=== PATIENT | female | born 1960 | race Caucasian/White ===

== ENCOUNTER → 2017-08-12 | Outpatient (CLI) | payer MEDICARE ==
[~2017-08-12] MED LIST: AMOXICILLIN500 MG PO; ATARAX,VISTARIL10 MG PO; COMBIVENT RESPIM4 GM INH; CYMBALTA60 M1 PO; CYMBALTA60 MG; CYMBALTA60 MG PO; DAYPRO600 M1 PO; IBU-8800 MG PO; LATU60TA PO; LATUDA; LISINOPRIL10 M1 PO; LITHIUM CARBON450 MG; LITHIUM CARBON450 MG PO; LOTRIMIN 1%15 GM PO; MEDROL DOSEPAK4 MG PO; NIFEDIPINE90 MG PO; NORVASC10 MG PO; PROZAC40 MG; PROZAC40 MG PO; ROBAXIN750 MG PO; VICODIN 500 MG-1 TAB PO; XANAX1 MG; XANAX1 MG PO; ZOCOR40 MG PO
[2017-08-12 09:37] LABS: ALBUMIN 3.6 gm/dl (3.1-4.5); ALKALINE PHOSPHATASE 77 U/L (45-117); BUN 14 mg/dl (7-24); CHLORIDE 104 mmol/L (98-107); CHOLESTEROL 189 mg/dL (<200); HDL CHOLESTEROL 76 mg/dl (40-60); POTASSIUM 4.6 mmol/L (3.5-5.1); SGOT/AST 17 IU/L (3-35); SGPT/ALT 22 U/L (12-78); SODIUM 137 mmol/L (136-145); TOTAL PROTEIN 7.5 gm/dL (6.4-8.2)
[2017-08-12 09:41] LABS: CREATININE 0.85 mg/dL (0.55-1.02); LDL CHOLESTEROL 92 mg/dL (9-159); TRIGLYCERIDES 103 mg/dl (<150); VLDL CHOLESTEROL 21 mg/dL (6-40)
[2017-08-12 09:54] LABS: BASO # 0.1 10*3/uL (0.0-0.1); EOS # 0.2 10*3/uL (0.0-0.4); EOS % 2.7 % (1.0-4.0); HEMATOCRIT 43.5 % (37.0-47.0); HEMOGLOBIN 14.7 g/dl (12.0-16.0); LYMPH # 2.3 10*3/uL (1.3-4.4); LYMPH % 33.7 % (27.0-41.0); MEAN CELL VOLUME 86.7 fl (81.0-99.0); MEAN CORPUSCULAR HGB 29.3 pg (27.0-31.0); MEAN CORPUSCULAR HGB CONC 33.8 g/dl (33.0-37.0); MEAN PLATELET VOLUME 10.9 fl (9.6-12.3); MONO # 0.6 10*3/uL (0.1-1.0); MONO % 8.9 % (3.0-9.0); NEUT # 3.7 10*3/uL (2.3-7.9); PLATELET COUNT AUTOMATED 296 10*3/uL (130-400); RED BLOOD COUNT 5.02 10*6/uL (4.10-5.10); RED CELL DISTRI WIDTH 12.5 % (0-14.5); WHITE BLOOD COUNT 6.9 10*3/uL (4.8-10.8)
== END | disposition home or self-care (01) ==
LOC: LAB 08:48
PROVIDERS: Nurse Practitioner Family
DX: E78.5 Hyperlipidemia, unspecified (principal); I10 Essential (primary) hypertension

== ENCOUNTER → 2017-10-12 | Outpatient (CLI) | payer MEDICARE ==
[~2017-10-12] MED LIST changes: +CHLORZOXAZONE500 M2 PO; +NAPROSYN500 MG PO
== END | disposition home or self-care (01) ==
LOC: CARD 10:20
DX: J44.9 Chronic obstructive pulmonary disease, unspecified (principal); I10 Essential (primary) hypertension; E66.9 Obesity, unspecified; Z87.891 Personal history of nicotine dependence

== ENCOUNTER 2017-11-15 11:47 | Emergency (ER) | payer MEDICARE ==
[~2017-11-15] VITALS: Ht 162.5 cm; Wt 103.0 kg
[~2017-11-15 11:47] MED LIST changes: -CHLORZOXAZONE500 M2 PO; -NAPROSYN500 MG PO
[2017-11-15] MEDS ORDERED: NAPROSYN500 MG PO (12:00)
[2017-11-15] MEDS ORDERED: CHLORZOXAZONE500 M2 PO (12:00)
== END 2017-11-15 13:04 | disposition home or self-care (01) ==
LOC: ED 11:47
DX: M54.42 Lumbago with sciatica, left side (principal); R03.0 Elevated blood-pressure reading, without diagnosis of hypertension; E78.5 Hyperlipidemia, unspecified; Z79.899 Other long term (current) drug therapy

== ENCOUNTER → 2017-11-17 | Outpatient (CLI) | payer MEDICARE ==
[~2017-11-17] MED LIST changes: +CHLORZOXAZONE500 M2 PO; +NAPROSYN500 MG PO
== END | disposition home or self-care (01) ==
LOC: CP 15:50
DX: R05 Cough (principal); R06.2 Wheezing; B37.9 Candidiasis, unspecified

== ENCOUNTER → 2018-07-11 | Outpatient (CLI) | payer MEDICARE ==
[~2018-07-11] MED LIST changes: +CRESTOR40 M1 PO; +HYDRALAZINE HYD50 MG PO; +MOBIC15 MG PO; +OXYBUTYNIN5 MG PO; +SINGULAIR10 M1 PO; +SYMB160 INH; +TRAMADOL HCL50 MG PO; +ZETIA10 MG PO; +ZYRTEC10 MG PO
[2018-07-11 12:40] LABS: BUN 13 mg/dl (7-24); CHLORIDE 104 mmol/L (98-107); CREATININE 0.84 mg/dL (0.55-1.02); POTASSIUM 4.4 mmol/L (3.5-5.1); SODIUM 139 mmol/L (136-145)
[2018-07-11 12:45] LABS: ALBUMIN 3.5 gm/dl (3.1-4.5); SGPT/ALT 50 U/L (12-78)
[2018-07-11 12:55] LABS: ALKALINE PHOSPHATASE 85 U/L (45-117); BILIRUBIN, DIRECT < 0.1 mg/dL (0.0-0.2); CHOLESTEROL 196 mg/dL (<200); FREE T4 0.96 ng/dl (0.76-1.46); HDL CHOLESTEROL 70 mg/dl (40-60); LDL CHOLESTEROL 91 mg/dL (9-159); SGOT/AST 27 IU/L (3-35); THYROID STIM HORMONE (HS) 0.785 uIU/ml (0.358-4.75); TOTAL PROTEIN 7.7 gm/dL (6.4-8.2); TRIGLYCERIDES 176 mg/dl (<150); VLDL CHOLESTEROL 35 mg/dL (6-40)
== END | disposition home or self-care (01) ==
LOC: LAB 10:34
PROVIDERS: Internal Medicine
DX: E78.5 Hyperlipidemia, unspecified (principal); E55.9 Vitamin D deficiency, unspecified; D18.00 Hemangioma unspecified site; L98.9 Disorder of the skin and subcutaneous tissue, unspecified

== ENCOUNTER → 2018-12-23 | Outpatient (CLI) | payer MEDICARE ==
[2018-12-23 12:39] LABS: ALBUMIN 3.8 gm/dl (3.1-4.5); ALKALINE PHOSPHATASE 55 U/L (45-117); BILIRUBIN, DIRECT < 0.1 mg/dL (0.0-0.2); CHOLESTEROL 149 mg/dL (<200); HDL CHOLESTEROL 74 mg/dl (40-60); LDL CHOLESTEROL 57 mg/dL (9-159); SGOT/AST 19 IU/L (3-35); SGPT/ALT 28 U/L (12-78); TOTAL PROTEIN 7.5 gm/dL (6.4-8.2); TRIGLYCERIDES 89 mg/dl (<150); VLDL CHOLESTEROL 18 mg/dL (6-40)
[2018-12-23 12:46] LABS: FREE T4 1.09 ng/dl (0.76-1.46); THYROID STIM HORMONE (HS) 0.578 uIU/ml (0.358-4.75)
== END | disposition home or self-care (01) ==
LOC: LAB 11:15
PROVIDERS: Internal Medicine
DX: E55.9 Vitamin D deficiency, unspecified (principal); E78.5 Hyperlipidemia, unspecified

== ENCOUNTER 2019-03-29 13:30 | Inpatient (IN) | payer MEDICARE ==
[~2019-03-29] VITALS: Ht 162.5 cm; Wt 101.2 kg
[2019-03-29 13:33] VITALS: BP 107/47
[2019-03-29 13:58] VITALS: BP 122/52
[2019-03-29 13:58] LABS: BASO # 0.1 10*3/uL (0.0-0.1); BASO % 0.9 % (0.0-1.0); EOS # 0.1 10*3/uL (0.0-0.4); EOS % 1.7 % (1.0-4.0); HEMATOCRIT 36.9 % (37.0-47.0); HEMOGLOBIN 12.3 g/dl (12.0-16.0); LYMPH # 1.9 10*3/uL (1.3-4.4); LYMPH % 27.4 % (27.0-41.0); MEAN CELL VOLUME 86.4 fl (81.0-99.0); MEAN CORPUSCULAR HGB 28.8 pg (27.0-31.0); MEAN CORPUSCULAR HGB CONC 33.3 g/dl (33.0-37.0); MEAN PLATELET VOLUME 10.6 fl (9.6-12.3); MONO # 0.6 10*3/uL (0.1-1.0); MONO % 8.9 % (3.0-9.0); NEUT # 4.3 10*3/uL (2.3-7.9); NEUT % 60.7 % (47.0-73.0); PLATELET COUNT AUTOMATED 301 10*3/uL (130-400); RED BLOOD COUNT 4.27 10*6/uL (4.10-5.10); RED CELL DISTRI WIDTH 13.4 % (0-14.5)
[2019-03-29 14:01] VITALS: BP 116/57
[2019-03-29 14:10] LABS: ACT PARTIAL THROMBO TIME 23.8 SECONDS (20.0-32.1); INTERNATIONAL NORM RATIO 0.9 (2.0-3.5)
[2019-03-29 14:15] LABS: ALBUMIN 3.5 gm/dl (3.1-4.5); ALKALINE PHOSPHATASE 45 U/L (45-117); BUN 16 mg/dl (7-24); CHLORIDE 111 mmol/L (98-107); CREATININE 1.24 mg/dL (0.55-1.02); LIPASE 85 U/L (73-393); POTASSIUM 3.8 mmol/L (3.5-5.1); SGOT/AST 17 IU/L (3-35); SGPT/ALT 21 U/L (12-78); SODIUM 142 mmol/L (136-145); TOTAL PROTEIN 7.4 gm/dL (6.4-8.2)
[2019-03-29 14:16] LABS: TROPONIN I < 0.015 ng/ml (<0.045)
[2019-03-29 14:58] LABS: BILIRUBIN NEGATIVE (NEGATIVE); BLOOD NEGATIVE (NEGATIVE); CLARITY CLEAR (CLEAR); COLOR YELLOW (YELLOW); GLUCOSE NEGATIVE (NEGATIVE); KETONE NEGATIVE (NEGATIVE); LEUKO ESTERASE NEGATIVE (NEGATIVE); NITRITE NEGATIVE (NEGATIVE); SPECIFIC GRAVITY >= 1.030 (1.005-1.030); UROBILINOGEN 0.2 E.U./dl (0.2-1.0)
[2019-03-29 15:21] VITALS: BP 120/48
[2019-03-29 15:26] LABS: EPITHELIAL CELLS 0-2; MUCOUS 2+
[2019-03-29 17:27] VITALS: BP 133/65
--- NOTE | 2019-03-29 17:27 | NUR ---
A 58, admitted to , under the services of CHASE Arita DO with a diagnosis of SYMPTOMATIC BRADYCARDIA. Chief complaint is LOW BLOOD PRESSURE. Patient arrived via bed from ER. Monitor applied. Initial assessment completed. Vital signs taken and recorded. CHASE ARITA DO notified of admission to the unit. Orders received. See assessment for past medical history, medications and allergies. Patient and/or family oriented to unit. [facility]. Clothing/patient valuable form completed. RENATE JONES
[2019-03-29] MEDS ORDERED: ATARAX,VISTARIL50 MG PO (18:01)
[2019-03-29] MEDS ORDERED: VITAMIN D5000 UNIT PO (18:02)
[2019-03-29] MEDS ORDERED: ROPINIROLE HYDRO1 MG PO (18:03)
[2019-03-29] MEDS ORDERED: CO Q-10200 MG PO (18:04)
[2019-03-29] MEDS ORDERED: FENOFIBRATE54 MG PO (18:07)
[2019-03-29] MEDS ORDERED: SALINE NASAL SP88 ML NAS (18:08)
--- NOTE | 2019-03-29 18:08 | NUR ---
MED REC UPDATED BASED ON BAG OF MEDS PATIENT BROUGHT IN.
--- NOTE | 2019-03-29 18:27 | NUR ---
ANSWERING SERVICE WAS NOTIFIED OF DR. PRAKASH CONSULT. RESPONSE OF NOTIFICATION WAS OK I WILL GET THIS OUT. RENATE JONES
--- NOTE | 2019-03-29 19:20 | NUR ---
ARRIVED ON SHIFT, INTRODUCED TO PATIENT, NO NEEDS VOICED AT THIS TIME, WHITE BOARD UPDATED.
[2019-03-29 20:00] VITALS: BP 119/63
--- NOTE | 2019-03-29 20:56 | NUR ---
24 HR chart check completed.
[2019-03-30] VITALS: BP 112/60
--- NOTE | 2019-03-30 | NUR ---
CALL PLACED TO DR. RUFFIN REGARDING PATIENTS HR WAS IN THE MID TO UPPER 30'S AT TIMES, AND NOT GOING ABOVE 50. ADVISED IF IT CONTINUES AND HR STAYS IN 30'S GREATED THAN 1 MINUTE TO CALL PIGMENT GRINDER.
--- NOTE | 2019-03-30 02:38 | NUR ---
CALL PLACED TO ONCALL SERVICE FOR DR. PRAKASH, DR. PELAYO IS CURRENT PHYSICIAN TERMITE CONTROL REPRESENTATIVE, SPOKE WITH SARAI, REPORTED THAT PATIENTS HEART RATE IS DROPPING INTO THE 30'S. AWAITING CALL BACK.
--- NOTE | 2019-03-30 02:48 | NUR ---
RECEIVED CALL BACK FROM DR. PELAYO, HE ADVISED THAT PATIENT MAY BE HAVING SLEEP APNEA, AND THIS IS NORMAL, UPDATE TO DR. RUFFIN
[2019-03-30 06:45] LABS: BASO # 0.1 10*3/uL (0.0-0.1); BASO % 0.8 % (0.0-1.0); EOS # 0.2 10*3/uL (0.0-0.4); EOS % 2.4 % (1.0-4.0); HEMATOCRIT 35.6 % (37.0-47.0); HEMOGLOBIN 11.8 g/dl (12.0-16.0); LYMPH # 1.7 10*3/uL (1.3-4.4); LYMPH % 27.9 % (27.0-41.0); MEAN CELL VOLUME 86.8 fl (81.0-99.0); MEAN CORPUSCULAR HGB 28.8 pg (27.0-31.0); MEAN CORPUSCULAR HGB CONC 33.1 g/dl (33.0-37.0); MEAN PLATELET VOLUME 10.8 fl (9.6-12.3); MONO # 0.6 10*3/uL (0.1-1.0); MONO % 9.5 % (3.0-9.0); NEUT # 3.6 10*3/uL (2.3-7.9); NEUT % 59.1 % (47.0-73.0); PLATELET COUNT AUTOMATED 264 10*3/uL (130-400); RED CELL DISTRI WIDTH 13.2 % (0-14.5); WHITE BLOOD COUNT 6.1 10*3/uL (4.8-10.8)
[2019-03-30 06:56] LABS: ALBUMIN 3.3 gm/dl (3.1-4.5); ALKALINE PHOSPHATASE 45 U/L (45-117); BUN 12 mg/dl (7-24); CHLORIDE 113 mmol/L (98-107); CHOLESTEROL 147 mg/dL (<200); CREATININE 0.92 mg/dL (0.55-1.02); HDL CHOLESTEROL 66 mg/dl (40-60); LDL CHOLESTEROL 62 mg/dL (9-159); PHOSPHOROUS 3.3 mg/dL (2.5-4.9); POTASSIUM 4.2 mmol/L (3.5-5.1); SGOT/AST 15 IU/L (3-35); SGPT/ALT 21 U/L (12-78); SODIUM 143 mmol/L (136-145); TOTAL PROTEIN 6.9 gm/dL (6.4-8.2); TRIGLYCERIDES 94 mg/dl (<150); VLDL CHOLESTEROL 19 mg/dL (6-40)
[2019-03-30 07:03] LABS: INTERNATIONAL NORM RATIO 0.9 (2.0-3.5)
[2019-03-30 08:00] VITALS: BP 122/70
--- NOTE | 2019-03-30 09:00 | NUR ---
Catalyst Recovery Operator in to talk to patient. Patient states lives at HOME with boyfriend. There are few steps in the home. Physician: yisel whitt [facility] Home health services: none Patient's level of ADLs: INDEPENDENT Patient has working utilities: all working DME: none Follow-up physician's appointment after d/c: will be made by hospialist nurse director upon discharge Does patient want to access PORTAL?: no Discharge plan discussed with patient, boyfriend present, she states she lives at home with boyfriend she is independent in adls and ambulation, drives, she states she will return home when medically stable and denies any home needs, patient has a cardiology consult, case management will follow. WILBER RODRIGUEZ
[2019-03-30 12:00] VITALS: BP 148/65
--- NOTE | 2019-03-30 13:45 | NUR ---
INFORMED CONSENT OBTAINED FOR CARDIOLITE STRESS TEST WITH DR. TUTTLE. RESTING EKG SINUS VIK WITH A SUPINE HT RT OF 50, WITH A BP OF 144/76 AND A STANDING HT RT OF 56, WITH A BP OF 142/80. PT COMPLETED 4:12 OF A KIRSTIN PROTOCOL WITH COMPLETION OF 1:12 OF STAGE II AT 2.5 MPH AND 12% GRADE. REACHED A PEAK HT RT OF 137 WHICH IS 86% OF PREDICTED MAX WITH A PEAK BP OF 164/80. TEST TERMINATED DUE TO FATIGUE AND JUMPING THE BELT. DENIED CHEST PRESSURE, MOSTLY SOB. HAS A FAIR EXERCISE TOLERANCE. LAST RECOVERY HT RT OF 77 WITH A BP OF 124/58. TAKEN TO NUCLEAR IMAGING FOR SCANNING IN STABLE CONDITION.
[2019-03-30 16:00] VITALS: BP 152/64
[2019-03-30 20:00] VITALS: BP 125/65
[2019-03-30 20:25] VITALS: BP 108/70
--- NOTE | 2019-03-30 20:25 | NUR ---
PT GIVEN TYLENOL 650 MG PO AT THIS TIME FOR C/O HEADACHE. WILL MONITOR FOR EFFECTIVENESS. ASSESSMENT COMPLETE AT THIS TIME ON PT. WILL CONTINUE TO MONITOR. CALL LIGHT IN REACH.
[2019-03-31] VITALS: BP 123/65
[2019-03-31 07:47] VITALS: BP 148/72
--- NOTE | 2019-03-31 08:26 | NUR ---
PT IS SITTING UPRIGHT IN BED COMFORTABLY WHILE WATCHING TV. BRAD DAVILA SPCC
--- NOTE | 2019-03-31 10:18 | NUR ---
PT IS UP WALKING HALLS PER DR CARL DAVILA SPNRCC
[2019-03-31 11:12] VITALS: BP 154/65
--- NOTE | 2019-03-31 12:23 | NUR ---
PT IS PLAYING GAMES AND HAS HER WITH HER. BRAD DAVILA SPCC
[2019-03-31] MEDS ORDERED: LISINOPRIL10 M1 PO (12:46)
[2019-03-31] MEDS ORDERED: NORVASC10 MG PO (12:46)
--- NOTE | 2019-03-31 13:22 | NUR ---
PT IS EATING LUNCH, IV WAS D/C AND SITE WAS ASYMPTOMATIC. PT HAS DRESSING ON SITE. BRAD DAVILA SPCC
--- NOTE | 2019-03-31 13:30 | NUR ---
Discharge instructions reviewed with patient/family. Patient receptive and verbalizes understanding. Follow-up care arranged. Written instructions given to patient/family, pt discahrged in care of , student walked pt to front door, condition stable BRAD DAVILA SPNRCC
--- NOTE | 2019-03-31 13:41 | NUR ---
PT DISCHARGED HOME AT THIS TIME. REFUSED WHEELCHAIR. HEPLOCK AND BLOOD BANK SUPERVISOR REMOVED.
== END 2019-03-31 13:41 | disposition home or self-care (01) | DRG 308 ==
LOC: ED 13:30 → EDHOLD 16:32 → 4E 16:32
PROVIDERS: Emergency Medicine; ADMIT Internal Medicine
DX: R00.1 Bradycardia, unspecified (principal); N17.0 Acute kidney failure with tubular necrosis; E86.0 Dehydration; J44.9 Chronic obstructive pulmonary disease, unspecified; I10 Essential (primary) hypertension; E66.9 Obesity, unspecified; F41.9 Anxiety disorder, unspecified; F12.90 Cannabis use, unspecified, uncomplicated; E78.5 Hyperlipidemia, unspecified; F31.9 Bipolar disorder, unspecified; Z98.51 Tubal ligation status; Z90.49 Acquired absence of other specified parts of digestive tract; Z82.49 Family history of ischemic heart disease and other diseases of the circulatory system; Z83.3 Family history of diabetes mellitus; Z68.36 Body mass index [BMI] 36.0-36.9, adult

== ENCOUNTER → 2019-04-21 | Outpatient (CLI) | payer MEDICARE ==
[~2019-04-21] MED LIST changes: +ATARAX,VISTARIL50 MG PO; +CO Q-10200 MG PO; +FENOFIBRATE54 MG PO; +ROPINIROLE HYDRO1 MG PO; +SALINE NASAL SP88 ML NAS; +VITAMIN D5000 UNIT PO
== END | disposition home or self-care (01) ==
LOC: CARD 00:03
DX: I10 Essential (primary) hypertension (principal); E78.5 Hyperlipidemia, unspecified; N39.3 Stress incontinence (female) (male); E66.9 Obesity, unspecified; E86.0 Dehydration; F12.90 Cannabis use, unspecified, uncomplicated; R00.1 Bradycardia, unspecified

== ENCOUNTER 2019-05-10 11:50 | Emergency (ER) | payer MEDICARE ==
[~2019-05-10] VITALS: Ht 162.5 cm; Wt 99.8 kg
[2019-05-10 12:18] LABS: BASO # 0.1 10*3/uL (0.0-0.1); BASO % 0.9 % (0.0-1.0); EOS # 0.1 10*3/uL (0.0-0.4); EOS % 1.7 % (1.0-4.0); HEMATOCRIT 35.9 % (37.0-47.0); HEMOGLOBIN 11.9 g/dl (12.0-16.0); LYMPH # 1.9 10*3/uL (1.3-4.4); LYMPH % 28.1 % (27.0-41.0); MEAN CELL VOLUME 87.3 fl (81.0-99.0); MEAN CORPUSCULAR HGB CONC 33.1 g/dl (33.0-37.0); MEAN PLATELET VOLUME 10.4 fl (9.6-12.3); MONO # 0.5 10*3/uL (0.1-1.0); MONO % 8.1 % (3.0-9.0); NEUT % 60.7 % (47.0-73.0); PLATELET COUNT AUTOMATED 289 10*3/uL (130-400); RED BLOOD COUNT 4.11 10*6/uL (4.10-5.10); RED CELL DISTRI WIDTH 13.6 % (0-14.5); WHITE BLOOD COUNT 6.6 10*3/uL (4.8-10.8)
[2019-05-10 12:28] LABS: ACT PARTIAL THROMBO TIME 24.2 SECONDS (20.0-32.1); INTERNATIONAL NORM RATIO 0.9 (2.0-3.5)
[2019-05-10 12:37] LABS: ALBUMIN 3.5 gm/dl (3.1-4.5); ALKALINE PHOSPHATASE 37 U/L (45-117); CHLORIDE 111 mmol/L (98-107); CREATININE 1.19 mg/dL (0.55-1.02); POTASSIUM 3.7 mmol/L (3.5-5.1); SGOT/AST 13 IU/L (3-35); SGPT/ALT 21 U/L (12-78); SODIUM 143 mmol/L (136-145)
[2019-05-10 12:39] LABS: TROPONIN I < 0.015 ng/ml (<0.045)
[2019-05-10 12:45] LABS: BUN 21 mg/dl (7-24)
== END 2019-05-10 15:15 | disposition home or self-care (01) ==
LOC: ED 11:50
PROVIDERS: Emergency Medicine
DX: R00.1 Bradycardia, unspecified (principal); R55 Syncope and collapse; R06.02 Shortness of breath; J44.9 Chronic obstructive pulmonary disease, unspecified; E78.5 Hyperlipidemia, unspecified; E66.9 Obesity, unspecified; Z68.39 Body mass index [BMI] 39.0-39.9, adult; Z79.899 Other long term (current) drug therapy

== ENCOUNTER 2019-05-16 16:42 | Inpatient (IN) | payer MEDICARE ==
[~2019-05-16] VITALS: Ht 162.6 cm; Wt 97.2 kg
[2019-05-16 16:51] VITALS: BP 116/54
[2019-05-16 17:01] LABS: BASO # 0.1 10*3/uL (0.0-0.1); BASO % 0.7 % (0.0-1.0); EOS # 0.1 10*3/uL (0.0-0.4); EOS % 1.5 % (1.0-4.0); HEMATOCRIT 35.4 % (37.0-47.0); HEMOGLOBIN 11.9 g/dl (12.0-16.0); LYMPH # 1.9 10*3/uL (1.3-4.4); LYMPH % 28.8 % (27.0-41.0); MEAN CELL VOLUME 86.1 fl (81.0-99.0); MEAN CORPUSCULAR HGB CONC 33.6 g/dl (33.0-37.0); MEAN PLATELET VOLUME 10.5 fl (9.6-12.3); MONO # 0.6 10*3/uL (0.1-1.0); MONO % 8.5 % (3.0-9.0); NEUT # 4.1 10*3/uL (2.3-7.9); NEUT % 60.2 % (47.0-73.0); PLATELET COUNT AUTOMATED 288 10*3/uL (130-400); RED BLOOD COUNT 4.11 10*6/uL (4.10-5.10); RED CELL DISTRI WIDTH 13.4 % (0-14.5); WHITE BLOOD COUNT 6.7 10*3/uL (4.8-10.8)
[2019-05-16 17:12] LABS: ACT PARTIAL THROMBO TIME 24.1 SECONDS (20.0-32.1)
[2019-05-16 17:18] LABS: ALBUMIN 3.8 gm/dl (3.1-4.5); ALKALINE PHOSPHATASE 44 U/L (45-117); BUN 16 mg/dl (7-24); CHLORIDE 109 mmol/L (98-107); CREATININE 1.21 mg/dL (0.55-1.02); POTASSIUM 4.3 mmol/L (3.5-5.1); SGOT/AST 14 IU/L (3-35); SGPT/ALT 22 U/L (12-78); SODIUM 139 mmol/L (136-145); TOTAL PROTEIN 7.4 gm/dL (6.4-8.2)
[2019-05-16 17:19] LABS: TROPONIN I < 0.015 ng/ml (<0.045)
[2019-05-16 18:00] VITALS: BP 116/56
[2019-05-16 19:13] VITALS: BP 116/56
[2019-05-16 20:06] VITALS: BP 114/60
[2019-05-16 20:35] VITALS: BP 163/73
--- NOTE | 2019-05-16 20:35 | NUR ---
A 59, admitted to 4E, under the services of ROSA العراقي DO with a diagnosis of CHEST PAIN RULE OUT ACUTE [place]. Chief complaint is CHEST PAIN. Patient arrived via wheel chair from ER. Monitor applied. Initial assessment completed. Vital signs taken and recorded. ROSA العراقي DO notified of admission to the unit. Orders received. See assessment for past medical history, medications and allergies. Patient and/or family oriented to unit. visitation policy reviewed. Clothing/patient valuable form completed. LEXY WHITEHEAD
--- NOTE | 2019-05-16 21:45 | NUR ---
MESSAGE LEFT WITH [facility]. AWAITING CALL BACK.
--- NOTE | 2019-05-16 21:50 | NUR ---
CONSULT COMPLETE WITH DR. BAE. NO NEW ORDERS AT THIS TIME.
[2019-05-17] VITALS: BP 97/37
--- NOTE | 2019-05-17 04:12 | NUR ---
PATIENT SLEEPING, RESPERS NONLABORED ON ROOM AIR. CALL LIGHT IS WITHIN REACH.
[2019-05-17 07:01] LABS: BASO # 0.1 10*3/uL (0.0-0.1); BASO % 0.9 % (0.0-1.0); EOS # 0.1 10*3/uL (0.0-0.4); EOS % 2.3 % (1.0-4.0); HEMATOCRIT 37.7 % (37.0-47.0); HEMOGLOBIN 12.4 g/dl (12.0-16.0); LYMPH # 1.5 10*3/uL (1.3-4.4); MEAN CELL VOLUME 87.5 fl (81.0-99.0); MEAN CORPUSCULAR HGB 28.8 pg (27.0-31.0); MEAN CORPUSCULAR HGB CONC 32.9 g/dl (33.0-37.0); MONO # 0.5 10*3/uL (0.1-1.0); NEUT # 3.5 10*3/uL (2.3-7.9); NEUT % 61.6 % (47.0-73.0); PLATELET COUNT AUTOMATED 304 10*3/uL (130-400); RED BLOOD COUNT 4.31 10*6/uL (4.10-5.10); RED CELL DISTRI WIDTH 13.2 % (0-14.5); WHITE BLOOD COUNT 5.7 10*3/uL (4.8-10.8)
[2019-05-17 07:32] LABS: BUN 13 mg/dl (7-24); CHLORIDE 110 mmol/L (98-107); CHOLESTEROL 140 mg/dL (<200); FREE T4 1.17 ng/dl (0.76-1.46); HDL CHOLESTEROL 67 mg/dl (40-60); LDL CHOLESTEROL 54 mg/dL (9-159); POTASSIUM 3.9 mmol/L (3.5-5.1); SODIUM 140 mmol/L (136-145); TRIGLYCERIDES 96 mg/dl (<150); VLDL CHOLESTEROL 19 mg/dL (6-40)
[2019-05-17 07:40] VITALS: BP 130/78
--- NOTE | 2019-05-17 08:06 | NUR ---
PATIENT UP AND WALKING IN ROOM,DENIES CHEST PAIN AND SHORTNESS OF BREATH AT THIS TIME, ALERT AND ORIENTED X3, NO S/S OF DISTRESS WILL CONTINUE TO MONITOR [id number]
--- NOTE | 2019-05-17 08:56 | NUR ---
#20 IV INSERTED INTO [facility] WITHOUT DIFFICULTY FOR A CT SCAN TODAY. GOOD BLOOD RETURN, FLUSHES WITH EASE. REMOVED LEFT HAND IV D/T PATIENT REQUEST. CATH INTACT,SITE ASYMPTOMATIC PATIENT TOLERATED WELL ELDON WALTERU.[facility]
--- NOTE | 2019-05-17 09:00 | NUR ---
Cap Jewel Plate Assembler in to talk to patient. Patient states lives at home with boyfriend. There are few steps in the home. Physician: yisel whitt [facility]: [facility] Home health services: none Patient's level of ADLs: INDEPENDENT Patient has working utilities: all working DME: none Follow-up physician's appointment after d/c: will be made by hospitalist nurse director upon discharge Does patient want to access PORTAL?: no Discharge plan discussed with patient, she lives at home with boyfriend, she is independent in adls and ambulation, she states she will return home when medically stable and denies any home needs, case management will follow. WILBER RODRIGUEZ
[2019-05-17 09:05] LABS: VITAMIN D, 25-HYDROXY 41.8 ng/mL (30-100)
--- NOTE | 2019-05-17 10:32 | NUR ---
PATIENT UP IN CHAIR ON HER PHONE, NO COMPLAINTS OF DISTRESS AT THIS TIME. CALL LIGHT IN REACH ELDON RIOS.[facility]
[2019-05-17 12:00] VITALS: BP 130/67
--- NOTE | 2019-05-17 12:30 | NUR ---
PATIENT SITTING UP IN CHAIR, NO CHEST PAIN OR DISCOMFORT AT THIS TIME ELDON HUFFMAN
--- NOTE | 2019-05-17 13:30 | NUR ---
INFORMED CONSENT OBTAINED FOR STANDARD GXT WITH DR. PELAYO. RESTING EKG BRADYCARDIA WITH A SUPINE HR OF 53 WITH BP OF 122/58 AND HR OF 53 WITH BP OF 114/60 IN STANDING POSITION. HAD C/O DIZZINESS WITH STANDING. PT COMPLETED 4:35 OF A KIRSTIN PROTOCOL WITH COMPLETION OF 1:35 OF STAGE II AT 2.5 MPH 12% GRADE. AT END OF STAGE I HR 122 WITH BP OF 160/82 AND UPON COMPLETION OF EXERCISE REACHED A PEAK HR OF 136 WHICH IS 86% OF PREDICTED MAX WITH A PEAK BP OF 170/88. TEST TERMINATED BECAUSE OF FATIGUE AND SHORTNESS OF BREATH. PEAK EXERCISE PT ANXIOUS AND C/O LIGHTHEADEDNESS. HAD NO CHEST PAIN OR ANY ST CHANGES. HAS A LOW EXERCISE TOLERANCE. LAST RECOVERY HR OF 60 WITH BP OF 134/74. POST TESTING PT RETURNED TO NURSING UNIT VIA WHEELCHAIR AND REPORT GIVEN.
--- NOTE | 2019-05-17 13:41 | NUR ---
PATIENT WENT DOWN FOR A STRESS TEST ELDON CARLISLE.[facility]
--- NOTE | 2019-05-17 14:28 | NUR ---
C/O HEADACHE OF 5. TYLENOL GIVEN AT THIS TIME. WILL CONT TO MONITOR. CALL LIGHT IN REACH.
[2019-05-17 16:00] VITALS: BP 140/68
--- NOTE | 2019-05-17 18:38 | NUR ---
PT DISCHARGED AT THIS TIME. IV REMOVED AND PRESSURE DRESSING APPLIED. VERBALIZED UNDERSTANDING OF DISCHARGE INSTRUCTIONS.
== END 2019-05-17 18:38 | disposition home or self-care (01) | DRG 880 ==
LOC: ED 16:42 → 4E 19:52 → EDHOLD 19:52 → 4E 20:14
PROVIDERS: Emergency Medicine; Internal Medicine; ADMIT Internal Medicine
PROC: 4A02XM4 Measurement of Cardiac Total Activity, External Approach (ICD-10-PCS; principal; 2019-05-17)
DX: F41.9 Anxiety disorder, unspecified (principal); E87.8 Other disorders of electrolyte and fluid balance, not elsewhere classified; I12.9 Hypertensive chronic kidney disease with stage 1 through stage 4 chronic kidney disease, or unspecified chronic kidney disease; N18.3 Chronic kidney disease, stage 3 (moderate); F31.9 Bipolar disorder, unspecified; G89.29 Other chronic pain; E78.5 Hyperlipidemia, unspecified; G25.81 Restless legs syndrome; F12.90 Cannabis use, unspecified, uncomplicated; D64.9 Anemia, unspecified; R73.9 Hyperglycemia, unspecified; J44.9 Chronic obstructive pulmonary disease, unspecified; E66.9 Obesity, unspecified; N32.81 Overactive bladder; E83.41 Hypermagnesemia; R00.1 Bradycardia, unspecified; Z98.51 Tubal ligation status; Z90.49 Acquired absence of other specified parts of digestive tract; Z83.3 Family history of diabetes mellitus; Z68.36 Body mass index [BMI] 36.0-36.9, adult; Z79.899 Other long term (current) drug therapy; Z82.49 Family history of ischemic heart disease and other diseases of the circulatory system

== ENCOUNTER → 2019-11-06 | Outpatient (CLI) | payer MEDICARE ==
[2019-11-06 11:36] LABS: ALBUMIN 3.7 gm/dl (3.1-4.5); ALKALINE PHOSPHATASE 56 U/L (45-117); BILIRUBIN, DIRECT < 0.1 mg/dL (0.0-0.2); BUN 16 mg/dl (7-24); CHLORIDE 110 mmol/L (98-107); CHOLESTEROL 172 mg/dL (<200); CREATININE 1.11 mg/dL (0.55-1.02); HDL CHOLESTEROL 74 mg/dl (40-60); LDL CHOLESTEROL 75 mg/dL (9-159); POTASSIUM 3.8 mmol/L (3.5-5.1); SGOT/AST 11 IU/L (3-35); SGPT/ALT 18 U/L (12-78); SODIUM 138 mmol/L (136-145); TOTAL PROTEIN 7.6 gm/dL (6.4-8.2); TRIGLYCERIDES 113 mg/dl (<150); VLDL CHOLESTEROL 23 mg/dL (6-40)
[2019-11-06 11:44] LABS: THYROID STIM HORMONE (HS) 0.944 uIU/ml (0.358-4.75)
== END | disposition home or self-care (01) ==
LOC: LAB 10:40
PROVIDERS: Internal Medicine
DX: E55.9 Vitamin D deficiency, unspecified (principal); R25.2 Cramp and spasm; E66.9 Obesity, unspecified; E78.5 Hyperlipidemia, unspecified

== ENCOUNTER → 2019-12-07 | Outpatient (CLI) | payer MEDICARE | END | disposition home or self-care (01) | LOC: RAD 10:08 | DX: M47.812 Spondylosis without myelopathy or radiculopathy, cervical region (principal); M25.78 Osteophyte, vertebrae; I10 Essential (primary) hypertension; E78.5 Hyperlipidemia, unspecified; E66.9 Obesity, unspecified; F41.9 Anxiety disorder, unspecified ==

== ENCOUNTER → 2020-03-29 | Outpatient (CLI) | payer MEDICARE ==
[2020-03-29 09:29] LABS: ALBUMIN 3.3 gm/dl (3.1-4.5); ALKALINE PHOSPHATASE 69 U/L (45-117); BILIRUBIN, DIRECT < 0.1 mg/dL (0.0-0.2); BUN 12 mg/dl (7-24); CHLORIDE 108 mmol/L (98-107); CHOLESTEROL 188 mg/dL (<200); CREATININE 0.96 mg/dL (0.55-1.02); HDL CHOLESTEROL 71 mg/dl (40-60); LDL CHOLESTEROL 88 mg/dL (9-159); SGOT/AST 15 IU/L (3-35); SGPT/ALT 24 U/L (12-78); SODIUM 141 mmol/L (136-145); TOTAL PROTEIN 7.2 gm/dL (6.4-8.2); TRIGLYCERIDES 146 mg/dl (<150); VLDL CHOLESTEROL 29 mg/dL (6-40)
== END | disposition home or self-care (01) ==
LOC: LAB 08:17
PROVIDERS: ATTEND Nurse Practitioner Family
DX: E55.9 Vitamin D deficiency, unspecified (principal); R25.2 Cramp and spasm; E78.5 Hyperlipidemia, unspecified; E74.39 Other disorders of intestinal carbohydrate absorption; Z79.899 Other long term (current) drug therapy

== ENCOUNTER → 2020-07-08 | Outpatient (CLI) | payer MEDICARE | END | disposition home or self-care (01) | LOC: LAB 11:27 → RAD 11:27 | PROVIDERS: ATTEND Nurse Practitioner Family | DX: J44.9 Chronic obstructive pulmonary disease, unspecified (principal); M47.814 Spondylosis without myelopathy or radiculopathy, thoracic region; Z90.49 Acquired absence of other specified parts of digestive tract; Z87.891 Personal history of nicotine dependence ==

== ENCOUNTER → 2020-07-24 | Outpatient (CLI) | payer MEDICARE ==
[2020-07-24 07:43] LABS: ALBUMIN 3.2 gm/dl (3.1-4.5); ALKALINE PHOSPHATASE 81 U/L (45-117); BILIRUBIN, DIRECT 0.1 mg/dL (0.0-0.2); BUN 12 mg/dl (7-24); CHLORIDE 108 mmol/L (98-107); CHOLESTEROL 164 mg/dL (<200); CREATININE 0.97 mg/dL (0.55-1.02); HDL CHOLESTEROL 73 mg/dl (40-60); IRON 52 ug/dL (50-170); LDL CHOLESTEROL 63 mg/dL (9-159); SGOT/AST 16 IU/L (3-35); SGPT/ALT 25 U/L (12-78); SODIUM 142 mmol/L (136-145); TOTAL IRON BINDING CAPACITY 356 ug/dl (250-450); TOTAL PROTEIN 7.2 gm/dL (6.4-8.2); TRIGLYCERIDES 141 mg/dl (<150); VLDL CHOLESTEROL 28 mg/dL (6-40)
== END | disposition home or self-care (01) ==
LOC: LAB 06:55
PROVIDERS: ATTEND Internal Medicine
DX: E78.5 Hyperlipidemia, unspecified (principal); E66.9 Obesity, unspecified; E55.9 Vitamin D deficiency, unspecified; E74.39 Other disorders of intestinal carbohydrate absorption; E61.1 Iron deficiency; R25.2 Cramp and spasm; Z79.899 Other long term (current) drug therapy

== ENCOUNTER 2020-08-24 08:53 | Emergency (ER) | payer OTHER ==
[~2020-08-24] VITALS: Wt 110.2 kg
[2020-08-24] MEDS ORDERED: NAPROXEN250 MG PO (10:20)
[2020-08-24] MEDS ORDERED: CYCLOBENZAPRINE10 MG PO (10:20)
[2020-08-24] MEDS ORDERED: TYLENOL325 M1 PO (10:20)
== END 2020-08-24 10:38 | disposition home or self-care (01) ==
LOC: ED 08:53
DX: M25.551 Pain in right hip (principal); M54.5 Low back pain; G89.29 Other chronic pain; I12.9 Hypertensive chronic kidney disease with stage 1 through stage 4 chronic kidney disease, or unspecified chronic kidney disease; N18.30 Chronic kidney disease, stage 3 unspecified; F12.90 Cannabis use, unspecified, uncomplicated; Z98.51 Tubal ligation status; Z98.890 Other specified postprocedural states; Z79.899 Other long term (current) drug therapy

== ENCOUNTER 2020-08-31 05:28 | Emergency (ER) | payer OTHER ==
[~2020-08-31] VITALS: Ht 162.5 cm; Wt 110.2 kg
[~2020-08-31 05:28] MED LIST changes: +CYCLOBENZAPRINE10 MG PO; +NAPROXEN250 MG PO; +TYLENOL325 M1 PO
[2020-08-31] MEDS ORDERED: MEDROL DOSEPAK4 MG PO (06:31)
[2020-08-31] MEDS ORDERED: Orphenadrine C100 MG PO (06:31)
== END 2020-08-31 06:50 | disposition home or self-care (01) ==
LOC: ED 05:28
DX: M25.551 Pain in right hip (principal); F31.9 Bipolar disorder, unspecified; I12.9 Hypertensive chronic kidney disease with stage 1 through stage 4 chronic kidney disease, or unspecified chronic kidney disease; N18.30 Chronic kidney disease, stage 3 unspecified; J44.9 Chronic obstructive pulmonary disease, unspecified; E66.9 Obesity, unspecified; E78.5 Hyperlipidemia, unspecified; Z79.899 Other long term (current) drug therapy; Z98.890 Other specified postprocedural states; Z90.49 Acquired absence of other specified parts of digestive tract; Z98.51 Tubal ligation status

== ENCOUNTER → 2020-10-04 | Outpatient (CLI) | payer OTHER ==
[~2020-10-04] MED LIST changes: +Orphenadrine C100 MG PO
[2020-10-04 07:26] LABS: BASO # 0.1 10*3/uL (0.0-0.1); BASO % 0.9 % (0.0-1.0); EOS # 0.1 10*3/uL (0.0-0.4); EOS % 1.1 % (1.0-4.0); HEMATOCRIT 40.7 % (37.0-47.0); LYMPH # 1.8 10*3/uL (1.3-4.4); LYMPH % 27.5 % (27.0-41.0); MEAN CELL VOLUME 83.2 fl (81.0-99.0); MEAN CORPUSCULAR HGB 26.8 pg (27.0-31.0); MEAN CORPUSCULAR HGB CONC 32.2 g/dl (33.0-37.0); MEAN PLATELET VOLUME 10.3 fl (9.6-12.3); MONO # 0.7 10*3/uL (0.1-1.0); NEUT # 3.9 10*3/uL (2.3-7.9); NEUT % 58.9 % (47.0-73.0); PLATELET COUNT AUTOMATED 386 10*3/uL (130-400); RED BLOOD COUNT 4.89 10*6/uL (4.10-5.10); WHITE BLOOD COUNT 6.6 10*3/uL (4.8-10.8)
[2020-10-04 08:38] LABS: ALBUMIN 3.3 gm/dl (3.1-4.5); ALKALINE PHOSPHATASE 76 U/L (45-117); BUN 8 mg/dl (7-24); CHLORIDE 107 mmol/L (98-107); CHOLESTEROL 158 mg/dL (<200); CREATININE 0.91 mg/dL (0.55-1.02); LDL CHOLESTEROL 67 mg/dL (9-159); SGOT/AST 22 IU/L (3-35); SGPT/ALT 25 U/L (12-78); SODIUM 137 mmol/L (136-145); TOTAL PROTEIN 7.6 gm/dL (6.4-8.2); TRIGLYCERIDES 127 mg/dl (<150)
== END | disposition home or self-care (01) ==
LOC: LAB 06:57
PROVIDERS: ATTEND Nurse Practitioner Family
DX: I10 Essential (primary) hypertension (principal); J44.9 Chronic obstructive pulmonary disease, unspecified; E78.5 Hyperlipidemia, unspecified; R41.3 Other amnesia; R73.01 Impaired fasting glucose; Z87.891 Personal history of nicotine dependence

== ENCOUNTER → 2020-12-03 | Outpatient (CLI) | payer OTHER ==
[2020-12-03 09:39] LABS: ALBUMIN 3.3 gm/dl (3.1-4.5); ALKALINE PHOSPHATASE 73 U/L (45-117); CHOLESTEROL 232 mg/dL (<200); FREE T4 0.87 ng/dl (0.76-1.46); IRON 32 ug/dL (50-170); LDL CHOLESTEROL 126 mg/dL (9-159); SGOT/AST 14 IU/L (3-35); SGPT/ALT 18 U/L (12-78); TOTAL PROTEIN 7.2 gm/dL (6.4-8.2); TRIGLYCERIDES 241 mg/dl (<150)
[2020-12-03 09:45] LABS: THYROID STIM HORMONE (HS) 0.615 uIU/ml (0.358-4.75); TOTAL IRON BINDING CAPACITY 409 ug/dl (250-450)
== END | disposition home or self-care (01) ==
LOC: LAB 08:52
PROVIDERS: ATTEND Internal Medicine
DX: E55.9 Vitamin D deficiency, unspecified (principal); E74.39 Other disorders of intestinal carbohydrate absorption; E78.5 Hyperlipidemia, unspecified; E61.1 Iron deficiency; E04.9 Nontoxic goiter, unspecified; R25.2 Cramp and spasm; Z79.899 Other long term (current) drug therapy

== ENCOUNTER → 2021-01-13 | Outpatient (CLI) | payer OTHER | END | disposition home or self-care (01) | LOC: MAMMO 10:29 | PROVIDERS: ATTEND Nurse Practitioner Family | DX: Z12.31 Encounter for screening mammogram for malignant neoplasm of breast (principal) ==

== ENCOUNTER → 2021-02-07 | Outpatient (CLI) | payer OTHER ==
[2021-02-07 14:16] LABS: HEMATOCRIT 37.5 % (37.0-47.0); MEAN CELL VOLUME 84.3 fl (81.0-99.0); MEAN CORPUSCULAR HGB 27.2 pg (27.0-31.0); MEAN CORPUSCULAR HGB CONC 32.3 g/dl (33.0-37.0); RED BLOOD COUNT 4.45 10*6/uL (4.10-5.10); WHITE BLOOD COUNT 8.2 10*3/uL (4.8-10.8)
[2021-02-07 14:32] LABS: ALBUMIN 3.2 gm/dl (3.1-4.5); ALKALINE PHOSPHATASE 80 U/L (45-117); BUN 10 mg/dl (7-24); CHLORIDE 105 mmol/L (98-107); CREATININE 1.06 mg/dL (0.55-1.02); POTASSIUM 4.3 mmol/L (3.5-5.1); SGOT/AST 16 IU/L (3-35); SGPT/ALT 23 U/L (12-78); SODIUM 137 mmol/L (136-145); TOTAL IRON BINDING CAPACITY 370 ug/dl (250-450); TOTAL PROTEIN 7.2 gm/dL (6.4-8.2)
== END | disposition home or self-care (01) ==
LOC: LAB 14:00
PROVIDERS: ATTEND Nurse Practitioner Family
DX: D50.9 Iron deficiency anemia, unspecified (principal)

== ENCOUNTER → 2021-02-10 | Outpatient (CLI) | payer OTHER | END | disposition home or self-care (01) | LOC: LAB 09:32 | PROVIDERS: ATTEND Nurse Practitioner Family | DX: D50.9 Iron deficiency anemia, unspecified (principal) ==

== ENCOUNTER → 2021-07-29 | Outpatient (CLI) | payer OTHER ==
[~2021-07-29] MED LIST changes: +ASPIRIN ADULT L81 M2 PO; +IRON325 M3 PO; +LATU40TA PO; +LISINOPRIL20 MG PO; +NEURONTIN100 MG PO; +OZEMPIC1 MG/0.71 SQ; +REMERON30 M1 PO; +VITAMIN D3125 MCG PO; +VITAMIN D350 MC2 PO; -VITAMIN D5000 UNIT PO; +ZOFRAN4 MG PO
[2021-07-29 08:41] LABS: MEAN CELL VOLUME 85.5 fl (81.0-99.0); MEAN CORPUSCULAR HGB 27.5 pg (27.0-31.0); MEAN CORPUSCULAR HGB CONC 32.2 g/dl (33.0-37.0); MEAN PLATELET VOLUME 10.5 fl (9.6-12.3); RED BLOOD COUNT 4.33 10*6/uL (4.10-5.10); RED CELL DISTRI WIDTH 13.5 % (0-14.5); WHITE BLOOD COUNT 5.4 10*3/uL (4.8-10.8)
[2021-07-29 08:59] LABS: BUN 11 mg/dl (7-24); CHLORIDE 109 mmol/L (98-107); CREATININE 0.89 mg/dL (0.55-1.02); IRON 35 ug/dL (50-170); LIPASE 177 U/L (73-393); SGOT/AST 14 IU/L (3-35); SGPT/ALT 17 U/L (12-78); SODIUM 140 mmol/L (136-145); TOTAL IRON BINDING CAPACITY 354 ug/dl (250-450)
[2021-07-29 09:03] LABS: ALKALINE PHOSPHATASE 72 U/L (45-117); TOTAL PROTEIN 7.3 gm/dL (6.4-8.2)
== END | disposition home or self-care (01) ==
LOC: LAB 07:40
PROVIDERS: ATTEND Nurse Practitioner Family
DX: K85.90 Acute pancreatitis without necrosis or infection, unspecified (principal); D50.9 Iron deficiency anemia, unspecified

== ENCOUNTER → 2021-08-13 | Outpatient (CLI) | payer OTHER | END | disposition home or self-care (01) | LOC: US 01:28 | PROVIDERS: ATTEND Nurse Practitioner Family | DX: K85.90 Acute pancreatitis without necrosis or infection, unspecified (principal); Z90.49 Acquired absence of other specified parts of digestive tract ==

== ENCOUNTER → 2021-09-11 | Outpatient (CLI) | payer OTHER ==
[2021-09-11 13:45] LABS: BUN 11 mg/dl (7-24); CHLORIDE 108 mmol/L (98-107); CHOLESTEROL 195 mg/dL (<200); POTASSIUM 4.2 mmol/L (3.5-5.1); SODIUM 139 mmol/L (136-145); TRIGLYCERIDES 183 mg/dl (<150)
[2021-09-11 13:55] LABS: ALKALINE PHOSPHATASE 65 U/L (45-117); CREATININE 0.93 mg/dL (0.55-1.02); IRON 59 ug/dL (50-170); LDL CHOLESTEROL 107 mg/dL (9-159); SGOT/AST 17 IU/L (3-35); SGPT/ALT 24 U/L (12-78); THYROID STIM HORMONE (HS) 0.609 uIU/ml (0.358-4.75); TOTAL IRON BINDING CAPACITY 336 ug/dl (250-450); TOTAL PROTEIN 6.8 gm/dL (6.4-8.2)
== END | disposition home or self-care (01) ==
LOC: LAB 12:10
PROVIDERS: ATTEND Internal Medicine
DX: E74.39 Other disorders of intestinal carbohydrate absorption (principal); E78.5 Hyperlipidemia, unspecified; E55.9 Vitamin D deficiency, unspecified; E04.9 Nontoxic goiter, unspecified; R25.2 Cramp and spasm; E61.1 Iron deficiency; Z79.899 Other long term (current) drug therapy

== ENCOUNTER → 2021-12-01 | Outpatient (CLI) | payer OTHER ==
[2021-12-01 09:16] LABS: BASO # 0.1 10*3/uL (0.0-0.1); BASO % 0.9 % (0.0-1.0); EOS # 0.3 10*3/uL (0.0-0.4); EOS % 5.2 % (1.0-4.0); HEMATOCRIT 40.9 % (37.0-47.0); LYMPH # 1.5 10*3/uL (1.3-4.4); LYMPH % 26.3 % (27.0-41.0); MEAN CELL VOLUME 89.5 fl (81.0-99.0); MEAN CORPUSCULAR HGB 29.3 pg (27.0-31.0); MEAN CORPUSCULAR HGB CONC 32.8 g/dl (33.0-37.0); MEAN PLATELET VOLUME 10.2 fl (9.6-12.3); MONO # 0.5 10*3/uL (0.1-1.0); MONO % 8.8 % (3.0-9.0); NEUT # 3.3 10*3/uL (2.3-7.9); NEUT % 58.6 % (47.0-73.0); PLATELET COUNT AUTOMATED 318 10*3/uL (130-400); RED BLOOD COUNT 4.57 10*6/uL (4.10-5.10); RED CELL DISTRI WIDTH 14.1 % (0-14.5); WHITE BLOOD COUNT 5.6 10*3/uL (4.8-10.8)
[2021-12-01 09:30] LABS: IRON 66 ug/dL (50-170)
== END | disposition home or self-care (01) ==
LOC: LAB 08:38
PROVIDERS: ATTEND Nurse Practitioner Family
DX: D50.9 Iron deficiency anemia, unspecified (principal)

== ENCOUNTER → 2022-02-11 | Outpatient (CLI) | payer OTHER | END | disposition home or self-care (01) | LOC: RAD 11:59 | PROVIDERS: ATTEND Internal Medicine Critical Care Medicine | DX: R06.02 Shortness of breath (principal); R06.83 Snoring; Z87.891 Personal history of nicotine dependence; Z68.34 Body mass index [BMI] 34.0-34.9, adult ==

== ENCOUNTER → 2022-02-17 | Outpatient (CLI) | payer OTHER ==
[2022-02-17 07:34] LABS: BASO # 0.1 10*3/uL (0.0-0.1); BASO % 1.1 % (0.0-1.0); EOS # 0.3 10*3/uL (0.0-0.4); EOS % 5.7 % (1.0-4.0); HEMATOCRIT 40.8 % (37.0-47.0); LYMPH # 1.7 10*3/uL (1.3-4.4); LYMPH % 30.6 % (27.0-41.0); MEAN CELL VOLUME 88.5 fl (81.0-99.0); MEAN CORPUSCULAR HGB 30.2 pg (27.0-31.0); MEAN CORPUSCULAR HGB CONC 34.1 g/dl (33.0-37.0); MEAN PLATELET VOLUME 9.9 fl (9.6-12.3); MONO # 0.5 10*3/uL (0.1-1.0); MONO % 8.6 % (3.0-9.0); NEUT # 2.9 10*3/uL (2.3-7.9); NEUT % 53.5 % (47.0-73.0); PLATELET COUNT AUTOMATED 329 10*3/uL (130-400); RED BLOOD COUNT 4.61 10*6/uL (4.10-5.10); RED CELL DISTRI WIDTH 12.3 % (0-14.5); WHITE BLOOD COUNT 5.5 10*3/uL (4.8-10.8)
[2022-02-17 07:55] LABS: ALKALINE PHOSPHATASE 67 U/L (45-117); BUN 15 mg/dl (7-24); CHLORIDE 109 mmol/L (98-107); CHOLESTEROL 280 mg/dL (<200); CREATININE 0.96 mg/dL (0.55-1.02); LDL CHOLESTEROL 188 mg/dL (9-159); POTASSIUM 4.2 mmol/L (3.5-5.1); SGOT/AST 15 IU/L (3-35); SGPT/ALT 21 U/L (12-78); SODIUM 142 mmol/L (136-145); TOTAL PROTEIN 7.3 gm/dL (6.4-8.2); TRIGLYCERIDES 176 mg/dl (<150)
== END | disposition home or self-care (01) ==
LOC: LAB 07:05
PROVIDERS: ATTEND Nurse Practitioner Family
DX: I10 Essential (primary) hypertension (principal); E78.5 Hyperlipidemia, unspecified; E66.9 Obesity, unspecified; R73.01 Impaired fasting glucose

== ENCOUNTER → 2022-05-12 | Outpatient (CLI) | payer OTHER ==
[2022-05-12 08:19] LABS: ALKALINE PHOSPHATASE 71 U/L (46-116); BUN 14 mg/dl (9-23); CHLORIDE 105 mmol/L (98-107); CHOLESTEROL 167 mg/dL (<200); LDL CHOLESTEROL 82 mg/dL (9-159); POTASSIUM 4.1 mmol/L (3.4-5.1); SGPT/ALT 31 U/L (10-49); TOTAL PROTEIN 7.1 gm/dL (6.0-8.0); TRIGLYCERIDES 143 mg/dl (<150)
[2022-05-12 08:31] LABS: VITAMIN D, 25-HYDROXY 32.6 ng/mL (30-100)
== END | disposition home or self-care (01) ==
LOC: LAB 07:16
PROVIDERS: ATTEND Internal Medicine
DX: E55.9 Vitamin D deficiency, unspecified (principal); E78.5 Hyperlipidemia, unspecified; E74.39 Other disorders of intestinal carbohydrate absorption; E04.9 Nontoxic goiter, unspecified; E61.1 Iron deficiency; Z79.899 Other long term (current) drug therapy

== ENCOUNTER → 2022-06-10 | Outpatient (CLI) | payer OTHER ==
[2022-06-10 10:21] LABS: BASO # 0.1 10*3/uL (0.0-0.1); EOS # 0.2 10*3/uL (0.0-0.4); EOS % 2.6 % (1.0-4.0); LYMPH # 1.7 10*3/uL (1.3-4.4); LYMPH % 28.6 % (27.0-41.0); MEAN CELL VOLUME 88.7 fl (81.0-99.0); MEAN CORPUSCULAR HGB 28.8 pg (27.0-31.0); MEAN CORPUSCULAR HGB CONC 32.5 g/dl (33.0-37.0); MEAN PLATELET VOLUME 10.1 fl (9.6-12.3); MONO # 0.4 10*3/uL (0.1-1.0); MONO % 7.3 % (3.0-9.0); NEUT # 3.6 10*3/uL (2.3-7.9); NEUT % 60.2 % (47.0-73.0); PLATELET COUNT AUTOMATED 281 10*3/uL (130-400); RED BLOOD COUNT 4.51 10*6/uL (4.10-5.10); RED CELL DISTRI WIDTH 12.8 % (0-14.5)
[2022-06-10 10:45] LABS: ALKALINE PHOSPHATASE 60 U/L (46-116); BUN 10 mg/dl (9-23); CHLORIDE 104 mmol/L (98-107); CHOLESTEROL 146 mg/dL (<200); LDL CHOLESTEROL 64 mg/dL (9-159); POTASSIUM 4.1 mmol/L (3.4-5.1); SGPT/ALT 14 U/L (10-49); TOTAL PROTEIN 7.2 gm/dL (6.0-8.0); TRIGLYCERIDES 102 mg/dl (<150)
== END | disposition home or self-care (01) ==
LOC: LAB 09:54
PROVIDERS: ATTEND Nurse Practitioner Family
DX: E78.5 Hyperlipidemia, unspecified (principal); I10 Essential (primary) hypertension; E55.9 Vitamin D deficiency, unspecified

== ENCOUNTER → 2022-06-24 | Outpatient (CLI) | payer OTHER | END | disposition home or self-care (01) | LOC: MAMMO 08:15 | PROVIDERS: ATTEND Nurse Practitioner Family | DX: Z12.31 Encounter for screening mammogram for malignant neoplasm of breast (principal) ==

== ENCOUNTER → 2022-09-18 | Outpatient (CLI) | payer OTHER ==
[2022-09-18 07:51] LABS: HEMATOCRIT 36.5 % (37.0-47.0); MEAN CELL VOLUME 89.9 fl (81.0-99.0); MEAN CORPUSCULAR HGB 29.8 pg (27.0-31.0); MEAN CORPUSCULAR HGB CONC 33.2 g/dl (33.0-37.0); MEAN PLATELET VOLUME 10.2 fl (9.6-12.3); RED BLOOD COUNT 4.06 10*6/uL (4.10-5.10); RED CELL DISTRI WIDTH 12.6 % (0-14.5); WHITE BLOOD COUNT 5.9 10*3/uL (4.8-10.8)
== END | disposition home or self-care (01) ==
LOC: LAB 07:34
PROVIDERS: ATTEND Speech-Language Pathologist
DX: D50.9 Iron deficiency anemia, unspecified (principal)

== ENCOUNTER → 2022-09-24 | Outpatient (CLI) | payer OTHER ==
[2022-09-24 08:41] LABS: FREE T4 0.98 ng/dl (0.89-1.76); POTASSIUM 4.5 mmol/L (3.4-5.1); THYROID STIM HORMONE (HS) 0.995 uIU/ml (0.550-4.780); TOTAL PROTEIN 6.9 gm/dL (6.0-8.0)
[2022-09-24 08:51] LABS: VITAMIN D, 25-HYDROXY 38.4 ng/mL (30-100)
== END | disposition home or self-care (01) ==
LOC: LAB 07:21
PROVIDERS: ATTEND Internal Medicine
DX: E78.5 Hyperlipidemia, unspecified (principal); E55.9 Vitamin D deficiency, unspecified; E04.9 Nontoxic goiter, unspecified; R25.2 Cramp and spasm; E61.1 Iron deficiency; E74.39 Other disorders of intestinal carbohydrate absorption; Z79.899 Other long term (current) drug therapy

== ENCOUNTER → 2022-12-14 | Outpatient (CLI) | payer OTHER ==
[2022-12-14 08:29] LABS: BASO # 0.1 10*3/uL (0.0-0.1); EOS # 0.3 10*3/uL (0.0-0.4); EOS % 5.4 % (1.0-4.0); LYMPH # 1.3 10*3/uL (1.3-4.4); LYMPH % 25.5 % (27.0-41.0); MEAN CELL VOLUME 90.2 fl (81.0-99.0); MEAN CORPUSCULAR HGB 29.2 pg (27.0-31.0); MEAN CORPUSCULAR HGB CONC 32.4 g/dl (33.0-37.0); MEAN PLATELET VOLUME 9.8 fl (9.6-12.3); MONO # 0.5 10*3/uL (0.1-1.0); MONO % 9.4 % (3.0-9.0); NEUT # 3.1 10*3/uL (2.3-7.9); NEUT % 58.3 % (47.0-73.0); PLATELET COUNT AUTOMATED 303 10*3/uL (130-400); RED BLOOD COUNT 3.66 10*6/uL (4.10-5.10); RED CELL DISTRI WIDTH 12.6 % (0-14.5); WHITE BLOOD COUNT 5.2 10*3/uL (4.8-10.8)
[2022-12-14 09:03] LABS: ALKALINE PHOSPHATASE 64 U/L (46-116); BUN 8 mg/dl (9-23); CHLORIDE 107 mmol/L (98-107); CHOLESTEROL 153 mg/dL (<200); LDL CHOLESTEROL 70 mg/dL (9-159); POTASSIUM 4.4 mmol/L (3.4-5.1); SGPT/ALT 18 U/L (10-49); TRIGLYCERIDES 80 mg/dl (<150)
== END | disposition home or self-care (01) ==
LOC: LAB 08:12
PROVIDERS: ATTEND Nurse Practitioner Family
DX: J44.9 Chronic obstructive pulmonary disease, unspecified (principal); E78.5 Hyperlipidemia, unspecified; I10 Essential (primary) hypertension; R73.01 Impaired fasting glucose

== ENCOUNTER → 2022-12-21 | Outpatient (CLI) | payer OTHER ==
[2022-12-21 08:53] LABS: BASO # 0.1 10*3/uL (0.0-0.1); BASO % 1.1 % (0.0-1.0); EOS # 0.3 10*3/uL (0.0-0.4); EOS % 6.4 % (1.0-4.0); HEMATOCRIT 33.7 % (37.0-47.0); LYMPH # 1.2 10*3/uL (1.3-4.4); LYMPH % 23.2 % (27.0-41.0); MEAN CELL VOLUME 91.1 fl (81.0-99.0); MEAN CORPUSCULAR HGB 29.5 pg (27.0-31.0); MEAN CORPUSCULAR HGB CONC 32.3 g/dl (33.0-37.0); MEAN PLATELET VOLUME 10.2 fl (9.6-12.3); MONO # 0.5 10*3/uL (0.1-1.0); MONO % 8.8 % (3.0-9.0); NEUT # 3.2 10*3/uL (2.3-7.9); NEUT % 60.1 % (47.0-73.0); PLATELET COUNT AUTOMATED 292 10*3/uL (130-400); WHITE BLOOD COUNT 5.4 10*3/uL (4.8-10.8)
== END | disposition home or self-care (01) ==
LOC: LAB 08:26
PROVIDERS: ATTEND Nurse Practitioner Family
DX: I10 Essential (primary) hypertension (principal); E66.9 Obesity, unspecified; R73.01 Impaired fasting glucose; E78.5 Hyperlipidemia, unspecified; D50.9 Iron deficiency anemia, unspecified

== ENCOUNTER → 2023-02-22 | Outpatient (CLI) | payer OTHER ==
[2023-02-22 11:12] LABS: ALKALINE PHOSPHATASE 68 U/L (46-116); BUN 9 mg/dl (9-23); CHLORIDE 107 mmol/L (98-107); CHOLESTEROL 172 mg/dL (<200); LDL CHOLESTEROL 80 mg/dL (9-159); POTASSIUM 4.8 mmol/L (3.4-5.1); SGPT/ALT 26 U/L (5-49); TRIGLYCERIDES 180 mg/dl (<150); VITAMIN D, 25-HYDROXY 41.4 ng/mL (30-100)
== END | disposition home or self-care (01) ==
LOC: LAB 10:23
PROVIDERS: ATTEND Internal Medicine
DX: E74.39 Other disorders of intestinal carbohydrate absorption (principal); E04.9 Nontoxic goiter, unspecified; R25.2 Cramp and spasm; E61.1 Iron deficiency; E78.5 Hyperlipidemia, unspecified; R73.01 Impaired fasting glucose; E55.9 Vitamin D deficiency, unspecified

== ENCOUNTER → 2023-03-16 | Outpatient (CLI) | payer OTHER ==
[2023-03-16 07:28] LABS: BASO # 0.1 10*3/uL (0.0-0.1); BASO % 1.2 % (0.0-1.0); EOS # 0.3 10*3/uL (0.0-0.4); HEMATOCRIT 37.1 % (37.0-47.0); LYMPH # 1.5 10*3/uL (1.3-4.4); LYMPH % 29.7 % (27.0-41.0); MEAN CELL VOLUME 87.9 fl (81.0-99.0); MEAN CORPUSCULAR HGB 29.4 pg (27.0-31.0); MEAN CORPUSCULAR HGB CONC 33.4 g/dl (33.0-37.0); MONO # 0.5 10*3/uL (0.1-1.0); MONO % 10.2 % (3.0-9.0); NEUT # 2.7 10*3/uL (2.3-7.9); NEUT % 52.5 % (47.0-73.0); PLATELET COUNT AUTOMATED 293 10*3/uL (130-400); RED BLOOD COUNT 4.22 10*6/uL (4.10-5.10); RED CELL DISTRI WIDTH 12.9 % (0-14.5); WHITE BLOOD COUNT 5.2 10*3/uL (4.8-10.8)
[2023-03-16 07:42] LABS: URINE CREATININE RANDOM 198.39 mg/dL
[2023-03-16 08:13] LABS: ALKALINE PHOSPHATASE 67 U/L (46-116); BUN 9 mg/dl (9-23); CHLORIDE 109 mmol/L (98-107); CHOLESTEROL 179 mg/dL (<200); LDL CHOLESTEROL 91 mg/dL (9-159); POTASSIUM 4.6 mmol/L (3.4-5.1); SGPT/ALT 25 U/L (5-49); TOTAL PROTEIN 6.8 gm/dL (6.0-8.0); TRIGLYCERIDES 160 mg/dl (<150)
== END | disposition home or self-care (01) ==
LOC: LAB 06:57
PROVIDERS: ATTEND Nurse Practitioner Family
DX: I10 Essential (primary) hypertension (principal); E66.9 Obesity, unspecified; R73.01 Impaired fasting glucose; N39.3 Stress incontinence (female) (male); E78.5 Hyperlipidemia, unspecified; D50.9 Iron deficiency anemia, unspecified

== ENCOUNTER → 2023-06-17 | Outpatient (CLI) | payer OTHER ==
[2023-06-17 08:05] LABS: BASO # 0.1 10*3/uL (0.0-0.1); EOS # 0.3 10*3/uL (0.0-0.4); HEMATOCRIT 37.9 % (37.0-47.0); LYMPH # 1.5 10*3/uL (1.3-4.4); LYMPH % 28.4 % (27.0-41.0); MEAN CELL VOLUME 90.9 fl (81.0-99.0); MEAN CORPUSCULAR HGB 30.2 pg (27.0-31.0); MEAN CORPUSCULAR HGB CONC 33.2 g/dl (33.0-37.0); MONO # 0.5 10*3/uL (0.1-1.0); MONO % 10.4 % (3.0-9.0); NEUT # 2.8 10*3/uL (2.3-7.9); NEUT % 53.8 % (47.0-73.0); PLATELET COUNT AUTOMATED 267 10*3/uL (130-400); RED BLOOD COUNT 4.17 10*6/uL (4.10-5.10); WHITE BLOOD COUNT 5.2 10*3/uL (4.8-10.8)
[2023-06-17 08:37] LABS: ALKALINE PHOSPHATASE 57 U/L (46-116); BUN 12 mg/dl (9-23); CHLORIDE 109 mmol/L (98-107); CHOLESTEROL 171 mg/dL (<200); LDL CHOLESTEROL 89 mg/dL (9-159); POTASSIUM 4.2 mmol/L (3.4-5.1); SGPT/ALT 36 U/L (5-49); TOTAL PROTEIN 6.7 gm/dL (6.0-8.0); TRIGLYCERIDES 94 mg/dl (<150)
== END | disposition home or self-care (01) ==
LOC: LAB 07:32
PROVIDERS: ATTEND Nurse Practitioner Family
DX: I10 Essential (primary) hypertension (principal); E78.5 Hyperlipidemia, unspecified; R73.01 Impaired fasting glucose; E66.9 Obesity, unspecified

== ENCOUNTER → 2023-07-19 | Outpatient (CLI) | payer OTHER | END | disposition home or self-care (01) | LOC: MAMMO 08:22 | PROVIDERS: ATTEND Nurse Practitioner Family | DX: Z12.31 Encounter for screening mammogram for malignant neoplasm of breast (principal); R92.30 Dense breasts, unspecified; N64.89 Other specified disorders of breast ==

== ENCOUNTER → 2023-08-03 | Outpatient (CLI) | payer OTHER ==
[2023-08-03 07:54] LABS: ALKALINE PHOSPHATASE 66 U/L (46-116); BUN 17 mg/dl (9-23); CHLORIDE 108 mmol/L (98-107); CHOLESTEROL 185 mg/dL (<200); LDL CHOLESTEROL 105 mg/dL (9-159); POTASSIUM 4.1 mmol/L (3.4-5.1); SGPT/ALT 28 U/L (5-49); TOTAL PROTEIN 6.7 gm/dL (6.0-8.0); TRIGLYCERIDES 116 mg/dl (<150)
[2023-08-03 08:06] LABS: VITAMIN D, 25-HYDROXY 36.4 ng/mL (30-100)
== END | disposition home or self-care (01) ==
LOC: LAB 07:11
PROVIDERS: ATTEND Internal Medicine
DX: R25.2 Cramp and spasm (principal); E74.39 Other disorders of intestinal carbohydrate absorption; E55.9 Vitamin D deficiency, unspecified; E04.9 Nontoxic goiter, unspecified; E61.1 Iron deficiency; E78.5 Hyperlipidemia, unspecified

== ENCOUNTER → 2023-09-15 | Outpatient (CLI) | payer OTHER ==
[2023-09-15 07:59] LABS: BASO # 0.1 10*3/uL (0.0-0.1); EOS # 0.3 10*3/uL (0.0-0.4); EOS % 5.8 % (1.0-4.0); HEMATOCRIT 39.1 % (37.0-47.0); LYMPH # 1.4 10*3/uL (1.3-4.4); LYMPH % 28.1 % (27.0-41.0); MEAN CELL VOLUME 91.6 fl (81.0-99.0); MEAN CORPUSCULAR HGB CONC 32.7 g/dl (33.0-37.0); MEAN PLATELET VOLUME 10.3 fl (9.6-12.3); MONO # 0.5 10*3/uL (0.1-1.0); MONO % 9.2 % (3.0-9.0); NEUT # 2.9 10*3/uL (2.3-7.9); NEUT % 55.7 % (47.0-73.0); PLATELET COUNT AUTOMATED 285 10*3/uL (130-400); RED BLOOD COUNT 4.27 10*6/uL (4.10-5.10); RED CELL DISTRI WIDTH 11.5 % (0-14.5); WHITE BLOOD COUNT 5.1 10*3/uL (4.8-10.8)
[2023-09-15 08:17] LABS: URINE CREATININE RANDOM 243.47 mg/dL
[2023-09-15 08:43] LABS: ALKALINE PHOSPHATASE 67 U/L (46-116); BUN 11 mg/dl (9-23); CHLORIDE 107 mmol/L (98-107); CHOLESTEROL 166 mg/dL (<200); LDL CHOLESTEROL 82 mg/dL (9-159); POTASSIUM 4.1 mmol/L (3.4-5.1); SGPT/ALT 16 U/L (5-49); TOTAL PROTEIN 7.1 gm/dL (6.0-8.0); TRIGLYCERIDES 137 mg/dl (<150)
== END ==
LOC: LAB 07:41
PROVIDERS: ATTEND Nurse Practitioner Family
DX: Z12.39 Encounter for other screening for malignant neoplasm of breast (principal); I10 Essential (primary) hypertension; E78.5 Hyperlipidemia, unspecified; E66.9 Obesity, unspecified; J44.9 Chronic obstructive pulmonary disease, unspecified; R73.01 Impaired fasting glucose; Z79.899 Other long term (current) drug therapy

== ENCOUNTER → 2023-12-15 | Outpatient (CLI) | payer OTHER ==
[2023-12-15 07:51] LABS: BASO # 0.1 10*3/uL (0.0-0.1); BASO % 1.6 % (0.0-1.0); EOS # 0.6 10*3/uL (0.0-0.4); EOS % 9.8 % (1.0-4.0); HEMATOCRIT 36.7 % (37.0-47.0); LYMPH # 1.3 10*3/uL (1.3-4.4); LYMPH % 22.2 % (27.0-41.0); MEAN CELL VOLUME 91.5 fl (81.0-99.0); MEAN CORPUSCULAR HGB 29.9 pg (27.0-31.0); MEAN CORPUSCULAR HGB CONC 32.7 g/dl (33.0-37.0); MONO # 0.5 10*3/uL (0.1-1.0); MONO % 8.6 % (3.0-9.0); NEUT # 3.3 10*3/uL (2.3-7.9); NEUT % 57.5 % (47.0-73.0); PLATELET COUNT AUTOMATED 287 10*3/uL (130-400); RED BLOOD COUNT 4.01 10*6/uL (4.10-5.10); RED CELL DISTRI WIDTH 12.6 % (0-14.5); WHITE BLOOD COUNT 5.7 10*3/uL (4.8-10.8)
[2023-12-15 08:09] LABS: URINE CREATININE RANDOM 108.07 mg/dL
[2023-12-15 08:47] LABS: ALKALINE PHOSPHATASE 76 U/L (46-116); BUN 10 mg/dl (9-23); CHLORIDE 108 mmol/L (98-107); CHOLESTEROL 157 mg/dL (<200); LDL CHOLESTEROL 74 mg/dL (9-159); POTASSIUM 4.1 mmol/L (3.4-5.1); SGPT/ALT 11 U/L (5-49); TRIGLYCERIDES 127 mg/dl (<150)
== END | disposition home or self-care (01) ==
LOC: LAB 07:23
PROVIDERS: Nurse Practitioner Family; ATTEND Internal Medicine
DX: I10 Essential (primary) hypertension (principal); R73.01 Impaired fasting glucose; J30.9 Allergic rhinitis, unspecified; E78.5 Hyperlipidemia, unspecified; E74.39 Other disorders of intestinal carbohydrate absorption; E04.9 Nontoxic goiter, unspecified; E61.1 Iron deficiency

== ENCOUNTER → 2024-03-22 | Outpatient (CLI) | payer OTHER ==
[2024-03-22 13:22] LABS: BASO # 0.1 10*3/uL (0.0-0.1); BASO % 1.4 % (0.0-1.0); EOS # 0.4 10*3/uL (0.0-0.4); EOS % 6.9 % (1.0-4.0); HEMATOCRIT 41.1 % (37.0-47.0); MEAN CELL VOLUME 92.8 fl (81.0-99.0); MEAN CORPUSCULAR HGB 29.3 pg (27.0-31.0); MEAN CORPUSCULAR HGB CONC 31.6 g/dl (33.0-37.0); MEAN PLATELET VOLUME 10.5 fl (9.6-12.3); MONO # 0.5 10*3/uL (0.1-1.0); MONO % 8.9 % (3.0-9.0); NEUT # 3.1 10*3/uL (2.3-7.9); NEUT % 55.8 % (47.0-73.0); PLATELET COUNT AUTOMATED 369 10*3/uL (130-400); RED BLOOD COUNT 4.43 10*6/uL (4.10-5.10); RED CELL DISTRI WIDTH 12.6 % (0-14.5); WHITE BLOOD COUNT 5.6 10*3/uL (4.8-10.8)
[2024-03-22 13:58] LABS: POTASSIUM 3.9 mmol/L (3.4-5.1); TOTAL PROTEIN 7.3 gm/dL (6.0-8.0)
== END | disposition home or self-care (01) ==
LOC: LAB 12:01
PROVIDERS: ATTEND Nurse Practitioner Family
DX: I10 Essential (primary) hypertension (principal); E78.5 Hyperlipidemia, unspecified; R73.01 Impaired fasting glucose; E66.9 Obesity, unspecified

== ENCOUNTER 2024-04-10 18:37 | Emergency (ER) | payer OTHER ==
[~2024-04-10] VITALS: Ht 162.5 cm; Wt 88.9 kg
[2024-04-10] MEDS ORDERED: GABAPENTIN100 M2 PO (18:54)
[2024-04-10] MEDS ORDERED: EZALLOR SPRINKLE5 MG PO (18:57)
[2024-04-10] MEDS ORDERED: AUSTEDO XR12 MG PO (18:58)
[2024-04-10] MEDS ORDERED: NAPROSYN500 MG PO (21:28)
[2024-04-10] MEDS ORDERED: Ketorolac Tromethamine 30 MG/ML VIAL IM ONE (21:30)
== END 2024-04-10 21:41 | disposition home or self-care (01) ==
LOC: ED 18:37
DX: S43.402A Unspecified sprain of left shoulder joint, initial encounter (principal); S50.12XA Contusion of left forearm, initial encounter; I10 Essential (primary) hypertension; E78.5 Hyperlipidemia, unspecified; J44.9 Chronic obstructive pulmonary disease, unspecified; E11.9 Type 2 diabetes mellitus without complications; F41.9 Anxiety disorder, unspecified; F31.9 Bipolar disorder, unspecified; M19.90 Unspecified osteoarthritis, unspecified site; F12.90 Cannabis use, unspecified, uncomplicated; Z90.49 Acquired absence of other specified parts of digestive tract; Z98.890 Other specified postprocedural states; W10.8XXA Fall (on) (from) other stairs and steps, initial encounter; Y93.89 Activity, other specified; Y92.89 Other specified places as the place of occurrence of the external cause; Y99.8 Other external cause status

== ENCOUNTER → 2024-06-21 | Outpatient (CLI) | payer OTHER ==
[~2024-06-21] MED LIST changes: +AUSTEDO XR12 MG PO; +EZALLOR SPRINKLE5 MG PO; +GABAPENTIN100 M2 PO
[2024-06-21 08:35] LABS: ALKALINE PHOSPHATASE 75 U/L (46-116); BUN 16 mg/dl (9-23); CHLORIDE 107 mmol/L (98-107); CHOLESTEROL 259 mg/dL (<200); LDL CHOLESTEROL 164 mg/dL (9-159); POTASSIUM 4.3 mmol/L (3.4-5.1); SGPT/ALT 11 U/L (5-49); TOTAL PROTEIN 6.9 gm/dL (6.0-8.0); TRIGLYCERIDES 123 mg/dl (<150); VITAMIN D, 25-HYDROXY 26.2 ng/mL (30-100)
== END | disposition home or self-care (01) ==
LOC: LAB 07:31
PROVIDERS: ATTEND Internal Medicine
DX: E78.5 Hyperlipidemia, unspecified (principal); E74.39 Other disorders of intestinal carbohydrate absorption; E04.9 Nontoxic goiter, unspecified; E55.9 Vitamin D deficiency, unspecified; R25.2 Cramp and spasm; E61.1 Iron deficiency

== ENCOUNTER → 2024-12-30 | Outpatient (CLI) | payer OTHER | END | disposition home or self-care (01) | LOC: LAB 03:00 | PROVIDERS: ATTEND Internal Medicine Gastroenterology | DX: D50.9 Iron deficiency anemia, unspecified (principal) ==

== ENCOUNTER → 2024-12-31 | Outpatient (CLI) | payer OTHER | END | disposition home or self-care (01) | LOC: LAB 03:00 | PROVIDERS: ATTEND Internal Medicine Gastroenterology | DX: D50.9 Iron deficiency anemia, unspecified (principal) ==

== ENCOUNTER → 2025-01-01 | Outpatient (CLI) | payer OTHER | END | disposition home or self-care (01) | LOC: LAB 08:28 | PROVIDERS: ATTEND Internal Medicine Gastroenterology | DX: D50.9 Iron deficiency anemia, unspecified (principal) ==

== ENCOUNTER → 2025-04-24 | Outpatient (CLI) | payer OTHER | END | disposition home or self-care (01) | LOC: MAMMO 01:56 | PROVIDERS: ATTEND Nurse Practitioner Primary Care | DX: Z12.31 Encounter for screening mammogram for malignant neoplasm of breast (principal); R92.313 Mammographic fatty tissue density, bilateral breasts ==

== ENCOUNTER → 2025-04-25 | Outpatient (CLI) | payer OTHER | END | disposition home or self-care (01) | LOC: RAD 01:57 → US 08:30 | PROVIDERS: ATTEND Nurse Practitioner Primary Care | DX: M85.851 Other specified disorders of bone density and structure, right thigh (principal); J44.9 Chronic obstructive pulmonary disease, unspecified; R06.2 Wheezing; I73.9 Peripheral vascular disease, unspecified; Z78.0 Asymptomatic menopausal state; Z87.891 Personal history of nicotine dependence ==